=== PATIENT | male | born 1995 | race Two or more races ===

== ENCOUNTER 2016-11-20 13:27 | Emergency (ER) | payer OTHER ==
[~2016-11-20] VITALS: Ht 172.7 cm; Wt 65.4 kg
[2016-11-20 13:30] VITALS: BP 145/99
[2016-11-20] MEDS ORDERED: HYDROmorphone 1 MG/ML, 1ML IM ONE (14:00)
[2016-11-20] MEDS ORDERED: ONDANSETRON ODT 4 MG PO ONE (14:00)
[2016-11-20] MEDS ORDERED: HYDROmorphone 1 MG/ML, 1ML ONE (14:09)
[2016-11-20] MEDS ORDERED: ONDANSETRON ODT 4 MG ONE (14:09)
== END 2016-11-20 15:22 | disposition home or self-care (01) ==
LOC: ED 14:45
DX: S12.8XXA Fracture of other parts of neck, initial encounter (principal); G89.11 Acute pain due to trauma; S63.521A Sprain of radiocarpal joint of right wrist, initial encounter; W18.30XA Fall on same level, unspecified, initial encounter; Y93.51 Activity, roller skating (inline) and skateboarding; Y92.89 Other specified places as the place of occurrence of the external cause; Y99.8 Other external cause status
CPT/HCPCS: 29105; 73080; 73110; 96372; 99284; J1170; Q0162

== ENCOUNTER 2016-11-25 11:02 | Emergency (ER) | payer OTHER ==
[~2016-11-25] VITALS: Ht 172.7 cm; Wt 66.1 kg
[2016-11-25 11:06] VITALS: BP 127/77
== END 2016-11-25 12:21 | disposition home or self-care (01) ==
LOC: ED 12:00
DX: S52.101D Unspecified fracture of upper end of right radius, subsequent encounter for closed fracture with routine healing (principal); I10 Essential (primary) hypertension; X58.XXXD Exposure to other specified factors, subsequent encounter; Y92.89 Other specified places as the place of occurrence of the external cause
CPT/HCPCS: 99281